=== PATIENT | female | born 1985 | race Caucasian/White ===

== ENCOUNTER 2019-05-19 12:10 | Observation (INO) | payer MEDICAID ==
[~2019-05-19] VITALS: Ht 152 cm; Wt 81.2 kg
[2019-05-19 12:51] VITALS: BP 137/76
[2019-05-19] MEDS ORDERED: BETAMETHASONE SOLUSPAN 6 MG/ML 5 ML VIAL IM ONE (14:00)
[2019-05-19] MEDS: RINGERS SOLUTION,LACTATED 1,000 ML IV SCH ×2 (14:43→17:04)
[2019-05-19] MEDS ORDERED: RINGERS SOLUTION,LACTATED 1,000 ML IV PRN (15:28)
[2019-05-19] MEDS: NIFEdipine 10 MG CAPSULE PO PRN ×2 (16:01→22:08)
[2019-05-19] MEDS ORDERED: MAGNESIUM SULFATE 4 GM/WATER 100 ML IV ONE (16:45)
[2019-05-19] MEDS ORDERED: CALCIUM GLUCONATE 100 MG/ML 10 ML IVP PRN (16:45)
[2019-05-19] MEDS: MAGNESIUM SULFATE 500 ML IV SCH (18:22)
[2019-05-20] MEDS ORDERED: BETAMETHASONE SOLUSPAN 6 MG/ML 5 ML VIAL IM SCH ×2 (02:40→03:00)
[2019-05-20] MEDS: MAGNESIUM SULFATE 500 ML IV SCH (04:17)
[2019-05-20] MEDS: RINGERS SOLUTION,LACTATED 1,000 ML IV SCH (04:19)
[2019-05-20] MEDS ORDERED: BETAMETHASONE SOLUSPAN 6 MG/ML 5 ML VIAL IM ONE (14:30)
== END 2019-05-20 15:54 | disposition home or self-care (01) ==
LOC: 4S 12:10
PROVIDERS: ADMIT Obstetrics & Gynecology; ATTEND Obstetrics & Gynecology
DX: O62.9 Abnormality of forces of labor, unspecified (principal); Z3A.34 34 weeks gestation of pregnancy
CPT/HCPCS: 76811; 96365; 96366 ×2; 96372 ×2; G0378; J0702 ×2; J3475 ×3; J7120 ×2

== ENCOUNTER 2019-05-30 12:29 | Inpatient (IN) | payer MEDICAID ==
[~2019-05-30] VITALS: Ht 154.9 cm; Wt 82.1 kg
[2019-06-23] MEDS ORDERED: OXYTOCIN 30 UNITS/LACT RINGERS 500 ML IV ONE (12:16)
[2019-06-23] MEDS ORDERED: RINGERS SOLUTION,LACTATED 1,000 ML IV PRN (12:16)
[2019-06-23] MEDS ORDERED: OXYTOCIN 30 UNITS/LACT RINGERS 500 ML IV PRN (12:16)
[2019-06-23 12:30] VITALS: BP 126/76
[2019-06-23] MEDS ORDERED: OXYGEN THERAPY IH SCH (12:30)
[2019-06-23] MEDS ORDERED: CITRIC ACID/SODIUM CITRATE 30 ML SOLUTION UDCUP PO PRN (12:30)
[2019-06-23] MEDS ORDERED: METOCLOPRAMIDE HCL 5 MG/ML 2 ML VIAL IVP PRN (12:30)
[2019-06-23] MEDS ORDERED: LIDOCAINE/PF 1% 30 ML VIAL INJ PRN (12:30)
[2019-06-23] MEDS ORDERED: METHYLERGONOVINE MALEATE 0.2 MG/ML VIAL IM PRN (12:30)
[2019-06-23] MEDS ORDERED: FentaNYL CITRATE-PF 100 MCG/2 ML VIAL IVP PRN (12:30)
[2019-06-23] MEDS ORDERED: PNV1TABL54 PO (12:34)
[2019-06-23 12:41] LABS: BASOPHILS % (AUTO) 0.3 % (0.0-2.0); EOSINOPHILS % (AUTO) 0.5 % (1.0-6.0); HEMATOCRIT 36.9 % (36-46); HEMOGLOBIN 12.5 g/dL (12.0-16.0); LYMPHOCYTES % (AUTO) 22.8 % (22.0-44.0); MEAN CORPUSCULAR HEMOGLOBIN 32.8 pg (26.0-34.0); MEAN CORPUSCULAR HGB CONC 33.8 G/dL (31.0-37.0); MEAN CORPUSCULAR VOLUME 97 fL (80-100); MONOCYTES # (AUTO) 0.5 K/uL (0.1-1.0); MONOCYTES % (AUTO) 6.3 % (2.0-9.0); NEUTROPHILS # (AUTO) 6.1 K/uL (1.8-7.7); NEUTROPHILS % (AUTO) 70.1 % (40.0-70.0); PLATELET COUNT (AUTO) 160 K/uL (150-450); RED CELL DISTRIBUTION WIDTH 14.5 % (11.5-14.5)
[2019-06-23] MEDS: RINGERS SOLUTION,LACTATED 1,000 ML IV SCH ×2 (12:50→13:53)
[2019-06-23] MEDS ORDERED: INFLUENZA VIRUS VACCINE QVS 2019-20 (3YR+)/PF 60 MCG/0.5 ML SYRINGE IM ONE (14:45)
[2019-06-23] MEDS ORDERED: ROPIVACAINE HCL/PF 0.2% 100 ML ED ONE (15:03)
[2019-06-23] MEDS ORDERED: LIDOCAINE/PF 2% 5 ML VIAL ONE (15:03)
[2019-06-23] MEDS ORDERED: ROPIVACAINE HCL/PF 0.2% 100 ML ED PRN (15:45)
[2019-06-23] MEDS ORDERED: DiphenhydrAMINE HCL 50 MG/ML VIAL IVP PRN (15:45)
[2019-06-23] MEDS ORDERED: NALBUPHINE HCL 10 MG/ML VIAL IVP PRN (15:45)
[2019-06-23] MEDS ORDERED: ONDANSETRON HCL 4 MG/2 ML VIAL IVP PRN (15:45)
[2019-06-23] MEDS ORDERED: ACETAMINOPHEN/CODEINE 300-30 MG TABLET PO PRN ×2 (16:00)
[2019-06-23] MEDS ORDERED: BENZOCAINE 20%/MENTHOL 56 GM SPRAY CANISTER TP PRN (16:00)
[2019-06-23] MEDS ORDERED: GLYCERIN/WITCH HAZEL LEAF 40 PADS JAR TP PRN (16:00)
[2019-06-23] MEDS ORDERED: LANOLIN 7 GM OINTMENT TP PRN (16:00)
[2019-06-23] MEDS: IBUPROFEN 800 MG TABLET PO SCH ×2 (17:17→23:34)
[2019-06-23] MEDS ORDERED: MAGNESIUM HYDROXIDE SUSPENSION 30 ML UDCUP PO SCH (21:00)
[2019-06-24] MEDS: IBUPROFEN 800 MG TABLET PO SCH (05:03)
[2019-06-24] MEDS ORDERED: IBUP-2071 PO (09:10)
[2019-06-24] MEDS ORDERED: DOCU-275 PO (09:11)
== END 2019-06-24 16:20 | disposition home or self-care (01) | DRG 560 ==
LOC: PREOBSVTOIN 12:29 → 4S 06-23 12:43
PROVIDERS: ADMIT Obstetrics & Gynecology; ATTEND Obstetrics & Gynecology
PROC: 10E0XZZ Delivery of Products of Conception, External Approach (ICD-10-PCS; principal; 2019-06-23)
PROC: 3E0R3BZ Introduction of Anesthetic Agent into Spinal Canal, Percutaneous Approach (ICD-10-PCS; 2019-06-23)
PROC: 00HU33Z Insertion of Infusion Device into Spinal Canal, Percutaneous Approach (ICD-10-PCS; 2019-06-23)
DX: O62.4 Hypertonic, incoordinate, and prolonged uterine contractions (principal); O41.03X0 Oligohydramnios, third trimester, not applicable or unspecified; Z3A.38 38 weeks gestation of pregnancy; Z37.0 Single live birth
CPT/HCPCS: 86850; 86900; 86901; J2590; J2795; J3490; J7120